=== PATIENT | male | born 1955 | race Caucasian/White ===

== ENCOUNTER 2017-04-19 06:54 | Observation (INO) | payer OTHER ==
[~2017-04-19] VITALS: Ht 172.7 cm; Wt 97.5 kg
[2017-04-19] VITALS (7 sets, daily range): BP systolic 141–188; BP diastolic 79–94; PULSE 55–84; RESP 14–16; TEMP 97–97.6; O2SAT 98–100
[~2017-04-19 06:54] MED LIST: ASPI1TAB69 PO; ATEN50TA PO; MOBI7.5T PO
[2017-04-19 07:12] LABS: AUTOMATED NEUTROPHIL # 4.2 TH/MM3 (1.8-7.7); BASOPHIL # 0.1 TH/MM3 (0-0.2); BASOPHIL % 0.9 % (0.0-2.0); EOSINOPHIL # 0.2 TH/MM3 (0-0.4); EOSINOPHIL % 3.1 % (0.0-4.0); HEMATOCRIT 43.5 % (39.0-51.0); HEMOGLOBIN 14.5 GM/DL (13.0-17.0); LYMPH % 28.5 % (9.0-44.0); MEAN CELL VOLUME 85.8 FL (80.0-100.0); MEAN CORPUSCULAR HEMOGLOBIN 28.6 PG (27.0-34.0); MEAN CORPUSCULAR HGB CONC 33.3 % (32.0-36.0); MEAN PLATELET VOLUME 7.8 FL (7.0-11.0); MONOCYTE # 0.5 TH/MM3 (0-0.9); NEUT % 60.5 % (16.0-70.0); PLATELET COUNT 231 TH/MM3 (150-450); RED BLOOD COUNT 5.07 MIL/MM3 (4.50-5.90); RED CELL DISTRIBUTION WIDTH 13.7 % (11.6-17.2)
--- NOTE | 2017-04-19 07:15 | RADRPT ---
EXAM DATE/TIME: 04/19/2017 07:03 [facility] COMPARISON: CHEST SINGLE AP, July 12, 2015, 11:34. INDICATIONS : Sudden onset of chest pain MEDICAL HISTORY : a fib SURGICAL HISTORY : None. ENCOUNTER: Initial ACUITY: 1 day PAIN SCORE: 5/10 LOCATION: Bilateral chest FINDINGS: A single view of the chest demonstrates the lungs to be symmetrically aerated without evidence of mas s, infiltrate or effusion. The cardiomediastinal contours are unremarkable. Osseous structures are intact. CONCLUSION: No acute disease. Mirza Cruz MD on April 19, 2017 at 7:13 Board Certified Radiologist. This report was verified electronically.
[2017-04-19 07:22] LABS: CHLORIDE 106 MEQ/L (98-107); SODIUM (NA) 139 MEQ/L (136-145)
[2017-04-19 07:24] LABS: CALCIUM 8.8 MG/DL (8.5-10.1)
[2017-04-19 07:25] LABS: BICARBONATE 26.4 MEQ/L (21.0-32.0); BLOOD UREA NITROGEN 27 MG/DL (7-18); GLUCOSE,RANDOM 114 MG/DL (74-106)
[2017-04-19 07:28] LABS: GLOMERULAR FILTRATION RATE 61 ML/MIN (>89)
[2017-04-19] MEDS: NITROGLYCERIN 0.4 MG SL 25 TABS/BTL SL SCH ×2 (07:31→07:38)
[2017-04-19 07:33] LABS: TROPONIN I LESS THAN 0.02 NG/ML (0.02-0.05)
--- NOTE | 2017-04-19 07:54 | PD ---
HPI Chief Complaint: Chest Pain Time Seen by Provider: 07:22 Travel History International Travel<30 days: No Contact w/Intl Traveler<30days: No Traveled to known affect area: No History of Present Illness HPI 61-year-old male complains of chest pain for the past 3 hours and a half. It started while he was asleep. Location is in the region of the left chest lateral to the inferior sternum. He denies shortness of breath. There is no pleuritic component. There is numbness and tingling and pain in the left upper extremity to the region of the elbow. He's had no cough or fever. He takes a baby aspirin daily. He denies history of diabetes hypertension and hyperlipidemia. He reports this morning his blood pressure was high at 190 systolic. PFSH Past Medical History Hx Anticoagulant Therapy: Yes (ASA) Atrial Fibrillation: Yes Blood Disorders: No Anxiety: No Depression: No Heart Rhythm Problems: Yes (atrial fibrillation) Cancer: No Cardiac Catheterization: Yes Cardiovascular Problems: Yes Chemotherapy: No Diabetes: No Diminished Hearing: No Endocrine: No Gastrointestinal Disorders: No GERD: Yes Glaucoma: No Genitourinary: No Hepatitis: No Hiatal Hernia: Yes Hypertension: No Immune Disorder: No Medical other: Yes (GERD) Musculoskeletal: No Neurologic: No Psychiatric: No Reproductive: No Respiratory: No Immunizations Current: Yes Radiation Therapy: No Thyroid Disease: No Tetanus Vaccination: > 5 Years Influenza Vaccination: No Past Surgical History AICD: No Arteriovenous Shunt: No Insulin Pump: No Joint Replacement: No Oral Surgery: Yes (SINUS SX) Pacemaker: No Other Surgery: Yes Social History Alcohol Use: Yes (OCCASIONAL) Tobacco Use: No Substance Use: No Allergies-Medications (Allergen,Severity, Reaction): Coded Allergies: No Known Allergies (Verified Allergy, Unknown, 04/19/17) Reported Meds & Prescriptions Reported Meds & Active Scripts Active Reported Omeprazole 10 Mg Cap Unknown Dose PO EVERY OTHER DAY Aspirin 81 Mg Chew 81 Mg PO DAILY Atenolol 50 Mg Tab 50 Mg PO DAILY Review of Systems Except as stated in HPI: all other systems reviewed are Neg General / Constitutional: No: Fever Physical Exam Narrative GENERAL: 61-year-old male pleasant well-nourished well-developed resting comfortably in bed Vital Signs Date Time Temp Pulse Resp B/P (MAP) Pulse Ox O2 Delivery O2 Flow Rate FiO2 04/19/17 07:08 99 Nasal Cannula 2.00 04/19/17 07:08 Nasal Cannula 2.00 04/19/17 07:00 97.5 64 16 158/94 (115) 98 SKIN: Warm and dry. HEAD: Atraumatic. Normocephalic. EYES: Pupils equal and round. No scleral icterus. No injection or drainage. ENT: No nasal bleeding or discharge. Mucous membranes pink and moist. NECK: Trachea midline. No JVD. CARDIOVASCULAR: Regular rate and rhythm. there is no chest wall tenderness to palpation. RESPIRATORY: No accessory muscle use. Clear to auscultation. Breath sounds equal bilaterally. GASTROINTESTINAL: Abdomen soft, non-tender, nondistended. Hepatic and splenic margins not palpable. MUSCULOSKELETAL: Extremities without clubbing, cyanosis, or edema. No obvious deformities. NEUROLOGICAL: Awake and alert. No obvious cranial nerve deficits. Motor grossly within normal limits. Five out of 5 muscle strength in the arms and legs. Normal speech. PSYCHIATRIC: Appropriate mood and affect; insight and judgment normal. Data Data Last Documented VS Vital Signs Date Time Temp Pulse Resp B/P (MAP) Pulse Ox O2 Delivery O2 Flow Rate FiO2 04/19/17 07:45 62 16 141/82 (101) 99 Nasal Cannula 2.00 04/19/17 07:00 97.5 Orders Orders Electrocardiogram (04/19/17 07:00) Complete Blood Count With Diff (04/19/17 07:00) Basic Metabolic Panel (Bmp) (04/19/17 07:00) Ckmb (Isoenzyme) Profile (04/19/17 07:00) Troponin I (04/19/17 07:00) Chest, Single Ap (04/19/17 07:00) Iv Access Insert/Monitor (04/19/17 07:00) Ecg Monitoring (04/19/17 07:00) Oxygen Administration (04/19/17 07:00) Oximetry (04/19/17 07:00) Nitroglycerin Sl (Nitrostat Sl) (04/19/17 07:30) Sodium Chlor 0.9% 1000 Ml Inj (Ns 1000 M (04/19/17 08:15) Admit Order (Ed Use Only) (04/19/17 ) Ticket Dispatcher / Telemetry DANIA.Q8H (04/19/17 08:19) Vital Signs (Adult) Q4H (04/19/17 08:19) Activity Bed Rest (04/19/17 08:19) Labs Laboratory Tests Test 04/19/17 07:00 White Blood Count 7.0 TH/MM3 Red Blood Count 5.07 MIL/MM3 Hemoglobin 14.5 GM/DL Hematocrit 43.5 % Mean Corpuscular Volume 85.8 FL Mean Corpuscular Hemoglobin 28.6 PG Mean Corpuscular Hemoglobin Concent 33.3 % Red Cell Distribution Width 13.7 % Platelet Count 231 TH/MM3 Mean Platelet Volume 7.8 FL Neutrophils (%) (Auto) 60.5 % Lymphocytes (%) (Auto) 28.5 % Monocytes (%) (Auto) 7.0 % Eosinophils (%) (Auto) 3.1 % Basophils (%) (Auto) 0.9 % Neutrophils # (Auto) 4.2 TH/MM3 Lymphocytes # (Auto) 2.0 TH/MM3 Monocytes # (Auto) 0.5 TH/MM3 Eosinophils # (Auto) 0.2 TH/MM3 Basophils # (Auto) 0.1 TH/MM3 CBC Comment DIFF FINAL Differential Comment Blood Urea Nitrogen 27 MG/DL Creatinine 1.20 MG/DL Random Glucose 114 MG/DL Calcium Level 8.8 MG/DL Sodium Level 139 MEQ/L Potassium Level 4.0 MEQ/L Chloride Level 106 MEQ/L Carbon Dioxide Level 26.4 MEQ/L Anion Gap 7 MEQ/L Estimat Glomerular Filtration Rate 61 ML/MIN Total Creatine Kinase 91 U/L Troponin I LESS THAN 0.02 NG/ML MDM Medical Decision Making Medical Screen Exam Complete: Yes Emergency Medical Condition: Yes Medical Record Reviewed: Yes Differential Diagnosis NSTEMI, unstable angina, coronary vasospasm, PE, PTX, aortic dissection, pericarditis, myocarditis, endocarditis, PNA, esophageal disease, aneurysm, musculoskeletal etiologies, anxiety, cocaine/sympathomimetic abuse Narrative Course EKG shows a sinus rhythm normal axis intervals rate is 65 Last Impressions Chest X-Ray 04/19/17 0700 Signed Impressions: Service Date/Time: Wednesday, April 19, 2017 07:03 - CONCLUSION: No acute disease. Mirza Cruz MD CBC & BMP Diagram 04/19/17 07:00 Calcium Level 8.8 Troponin less than 0.02 the nuclear medicine perfusion scan from approximately 1 year 10 months prior is normal Patient received nitroglycerin 2 with resolution of pain. Chest pain center protocol considered next most appropriate step. d/w Dr Oglesby Diagnosis Primary Impression: Chest pain Qualified Codes: R07.9 - Chest pain, unspecified Additional Impressions: Hypertension Qualified Codes: I10 - Essential (primary) hypertension Prerenal azotemia Admitting Information Admitting Physician Requests: Observation London Willis MD Apr 19, 2017 07:54
[2017-04-19] MEDS ORDERED: SODIUM CHLOR 0.9% 1000 ML INJ 1,000 ML IV ONE (08:15)
--- NOTE | 2017-04-19 08:22 | HHI.HP ---
[facility] Primary Care Physician Unknown Admission Diagnosis Chest Pain; Hypertension; Dehydration Diagnoses: (1) Chest pain (2) Hypertension Chief Complaint: Chest pain Travel History International Travel<30 Days: No Contact w/Intl Traveler <30 Da: No Traveled to Known Affected Are: No History of Present Illness This is a pleasant 61-year-old male patient with a known medical history of atrial fibrillation on aspirin who presented to the ED with complaints of chest pain. Patient states that around 04 100 this morning he was awoken out of sleep due to the midsternal chest discomfort, states it was constant and dull and squeezing in nature, also noticing a left arm ache, rated a 7 out of 10 on pain scale at its worst, denies any associated nausea, vomiting, diaphoresis or shortness of breath. Patient states that he has never felt this type of pain before. He did check his blood pressure at home and it was reported to be 190/ 100. Patient states he took his scheduled daily medications including aspirin and atenolol with no relief of pain. Patient eventually went to the ED and received nitroglycerin which somewhat relieved the pain. He denies any recent illness including fever, chills, cough, headache, shortness of breath, abdominal pain, nausea, vomiting or diarrhea. PCP is Dr. Bonilla. Patient underwent a stress test 3 years ago which was reportedly negative. Patient follows with Dr. Ingram in the outpatient setting and was last seen 1 year ago. Denies any tobacco use. Family history negative. Review of Systems Constitutional: DENIES: Fatigue, Fever, Chills Eyes: DENIES: Blurred vision, Diplopia Respiratory: DENIES: Cough, Sputum production, Shortness of breath Cardiovascular: COMPLAINS OF: Chest pain, DENIES: Palpitations Gastrointestinal: DENIES: Abdominal pain, Black stools, Bloody stools, Constipation, Diarrhea, Nausea, Vomiting Musculoskeletal: DENIES: Joint pain Neurologic: DENIES: Abnormal gait Psychiatric: DENIES: Anxiety Except as stated in HPI: all other systems reviewed are Neg Past Family Social History Past Medical History Atrial fibrillation on aspirin GERD Hiatal hernia Past Surgical History Sinus surgery 2 Reported Medications Active Reported Omeprazole 10 Mg Cap Unknown Dose PO EVERY OTHER DAY Aspirin 81 Mg Chew 81 Mg PO DAILY Atenolol 50 Mg Tab 50 Mg PO DAILY Allergies: Coded Allergies: No Known Allergies (Verified Allergy, Unknown, 04/19/17) Active Ordered Medications Current Medications Medications (Trade) Dose Ordered Sig/Sheela Route Start Time Stop Time Status Last Admin (NS Flush) 2 ml UNSCH PRN IV FLUSH 04/19/17 08:30 (NS Flush) 2 ml BID IV FLUSH 04/19/17 09:00 (Tylenol) 500 mg Q4H PRN PO 04/19/17 08:30 (Zofran Inj) 4 mg Q6H PRN IV PUSH 04/19/17 08:30 Family History Denies any significant cardiovascular disease in family. Social History Patient denies any current tobacco use, states he quit 30 years ago, admits to occasional alcohol use. Denies any illicit drug use. Physical Exam Vital Signs Vital Signs Date Time Temp Pulse Resp B/P (MAP) Pulse Ox O2 Delivery O2 Flow Rate FiO2 04/19/17 07:45 62 16 141/82 (101) 99 Nasal Cannula 2.00 04/19/17 07:37 68 16 145/79 (101) 98 Nasal Cannula 2.00 04/19/17 07:08 99 Nasal Cannula 2.00 04/19/17 07:08 Nasal Cannula 2.00 04/19/17 07:00 97.5 64 16 158/94 (115) 98 Physical Exam GENERAL: Well-developed, well-nourished patient in [facility]. SKIN: Warm and dry. No rash. HEAD: Normocephalic. Atraumatic. EYES: Pupils equal and round. No scleral icterus. No injection or drainage. ENT: No nasal bleeding or discharge. Mucous membranes pink and moist. NECK: Supple. Trachea midline. CARDIOVASCULAR: Regular rate and rhythm. S1, S2 noted. No murmur appreciated. No chest pain to palpation. RESPIRATORY: No accessory muscle use. Clear to auscultation. Breath sounds equal bilaterally. GASTROINTESTINAL: Abdomen soft, non-tender, nondistended. Normoactive bowel sounds x4. MUSCULOSKELETAL: No obvious deformities. Extremities without clubbing, cyanosis , or edema. NEUROLOGICAL: Awake and alert. No obvious cranial nerve deficits. Motor grossly within normal limits. 5/5 muscle strength in bilateral upper and lower extremities. Normal speech. PSYCHIATRIC: Appropriate mood and affect; insight and judgment normal. Laboratory Laboratory Tests Test 04/19/17 07:00 White Blood Count 7.0 Red Blood Count 5.07 Hemoglobin 14.5 Hematocrit 43.5 Mean Corpuscular Volume 85.8 Mean Corpuscular Hemoglobin 28.6 Mean Corpuscular Hemoglobin Concent 33.3 Red Cell Distribution Width 13.7 Platelet Count 231 Mean Platelet Volume 7.8 Neutrophils (%) (Auto) 60.5 Lymphocytes (%) (Auto) 28.5 Monocytes (%) (Auto) 7.0 Eosinophils (%) (Auto) 3.1 Basophils (%) (Auto) 0.9 Neutrophils # (Auto) 4.2 Lymphocytes # (Auto) 2.0 Monocytes # (Auto) 0.5 Eosinophils # (Auto) 0.2 Basophils # (Auto) 0.1 CBC Comment DIFF FINAL Differential Comment Blood Urea Nitrogen 27 Creatinine 1.20 Random Glucose 114 Calcium Level 8.8 Sodium Level 139 Potassium Level 4.0 Chloride Level 106 Carbon Dioxide Level 26.4 Anion Gap 7 Estimat Glomerular Filtration Rate 61 Total Creatine Kinase 91 Troponin I LESS THAN 0.02 Result Diagram: 04/19/1769904/19/17699 Imaging Last Impressions Chest X-Ray 04/19/17699 Signed Impressions: Service Date/Time: Wednesday, April 19, 2017 07:03 - CONCLUSION: No acute disease. Mirza Cruz MD Septic Shock Reassessment Septic shock perfusion: reassessment completed Caprini VTE Risk Assessment Caprini VTE Risk Assessment: Mod/High Risk (score >= 2) Caprini Risk Assessment Model Point Value = 1 Point Value = 2 Point Value = 3 Point Value = 5 Age 41-60 Minor surgery BMI > 25 kg/m2 Swollen legs Varicose veins or History of unexplained or recurrent spontaneous Oral contraceptives or hormone replacement Sepsis (< 1 month) Serious lung disease, including pneumonia (< 1 month) Abnormal pulmonary function Acute myocardial infarction Congestive heart failure (< 1 month) History of inflammatory bowel disease Medical patient at bed rest Age 61-74 Arthroscopic surgery Major open surgery (> 45 min) Laparoscopic surgery (> 45 min) Malignancy Confined to bed (> 72 hours) Immobilizing plaster cast Central venous access Age >= 75 History of VTE Family history of VTE Factor V Leiden Prothrombin [id number] Lupus anticoagulant Anticardiolipin antibodies Elevated serum homocysteine Heparin-induced thrombocytopenia Other congenital or acquired thrombophilia Stroke (< 1 month) Elective arthroplasty Hip, pelvis, or leg fracture Acute spinal cord injury (< 1 month) Prophylaxis Regimen Total Risk Factor Score Risk Level Prophylaxis Regimen 0-1 Low Early ambulation 2 Moderate Order ONE of the following: *Sequential Compression Device (SCD) *Heparin 5000 units SQ BID 3-4 Higher Order ONE of the following medications: *Heparin 5000 units SQ TID *Enoxaparin/Lovenox 40 mg SQ daily (WT < 150 kg, CrCl > 30 mL/min) *Enoxaparin/Lovenox 30 mg SQ daily (WT < 150 kg, CrCl > 10-29 mL/min) *Enoxaparin/Lovenox 30 mg SQ BID (WT < 150 kg, CrCl > 30 mL/min) AND/OR *Sequential Compression Device (SCD) 5 or more Highest Order ONE of the following medications: *Heparin 5000 units SQ TID (Preferred with Epidurals) *Enoxaparin/Lovenox 40 mg SQ daily (WT < 150 kg, CrCl > 30 mL/min) *Enoxaparin/Lovenox 30 mg SQ daily (WT < 150 kg, CrCl > 10-29 mL/min) *Enoxaparin/Lovenox 30 mg SQ BID (WT < 150 kg, CrCl > 30 mL/min) AND *Sequential Compression Device (SCD) Assessment and Plan Problem List: (1) Chest pain ICD Code: R07.9 - Chest pain, unspecified Status: Acute Plan: Patient has been admitted to the hospital under observation in the chest pain center. Serial EKGs and serial troponins have been ordered for ruling out ACS purposes. Initial 2 troponins flat, follow trend. EKG reviewed showing normal sinus rhythm with controlled heart rate. Patient is on cardiac telemetry, occasional sinus bradycardia. Chest pain has subsided, currently complains of a 2 out of 10 on pain scale. Chest x-ray reviewed showing no acute disease. CBC and BMP reviewed, essentially unremarkable. Patient received nitroglycerin in ED with some relief of pain. Patient will undergo a cardiac talar stress test to further rule out any ischemia. Depending on nuclear imaging results, further hospitalization and treatment plan will be developed. Patient is stable at this time and agreeable to the plan. (2) Hypertension ICD Code: I10 - Essential (primary) hypertension Status: Acute Plan: Blood pressure is controlled, continue to monitor BP trends. Will continue home medications although patient took her medications this morning. Assessment and Plan Patient underwent nuclear stress test, report reviewed, EF 66%. No ischemia or reversible defects noted. Patient updated about results. We will discharge and have follow up with PCP. Patient follows with Dr. Ingram cardiology, encourage patient to follow-up as scheduled. Patient's chest pain is resolved. Stable. And agreeable to the plan. Problem Qualifiers (1) Chest pain: Qualified Codes: R07.9 - Chest pain, unspecified (2) Hypertension: Qualified Codes: I10 - Essential (primary) hypertension Sabrina Cortés Apr 19, 2017 08:22
[2017-04-19] MEDS ORDERED: ONDANSETRON HCL 4 MG/2 ML VIAL IV PUSH PRN (08:30)
[2017-04-19] MEDS ORDERED: SODIUM CHLORIDE 0.9% FLUSH 10 ML FLUSH IV FLUSH PRN (08:30)
[2017-04-19] MEDS ORDERED: ACETAMINOPHEN 500 MG CPLT PO PRN (08:30)
[2017-04-19] MEDS ORDERED: OMEP10CA PO (08:48)
[2017-04-19] MEDS ORDERED: ASPI-516 PO (08:48)
[2017-04-19] MEDS ORDERED: SODIUM CHLORIDE 0.9% FLUSH 10 ML FLUSH IV FLUSH SCH (09:00)
[2017-04-19 10:25] LABS: TROPONIN I 0.03 NG/ML (0.02-0.05)
[2017-04-19] MEDS ORDERED: REGADENOSON INJ 0.4 MG/5 ML SYR IV ONE (12:52)
--- NOTE | 2017-04-19 13:57 | RADRPT ---
EXAM DATE/TIME: 04/19/2017 12:38 [facility] COMPARISON: MYOCARDIAL PERF PHARM SPECT, GATED W/EF, July 13, 2015, 10:38. INDICATIONS : Substernal chest pain. Angina. Atrial fibrillation. DOSE: 25.4 mCi Tc99m Myoview at stress. 8.5 mCi Tc99m Myoview at rest. 0.4 mg Lexiscan STRESS SYMPTOMS: Headache, dyspnea, nausea and chest pressure. EJECTION FRACTION: 66% MEDICAL HISTORY : Gastroesophageal reflux disease. SURGICAL HISTORY : Sinus surgery. ENCOUNTER: Initial ACUITY: 1 day PAIN SCALE: 5/10 LOCATION: Substernal chest TECHNIQUE: The patient underwent pharmacologic stress with infusion of prescribed dose. Continuous ECG tracing was monitored during stress. Gated SPECT imaging was performed after stress and conventional SPECT i maging was performed at rest. The examination was performed on a SPECT/CT scanner, both attenuation and non-corrected datasets were reviewed. FINDINGS: DISTRIBUTION: The maximum perfused segment at stress is in the anterior wall. PERFUSION STUDY: The pattern of perfusion at stress is within normal limits. GATED STUDY: There is intact wall motion and thickening without hypokinetic or dyskinetic segments. CONCLUSION: No focal wall motion abnormality or reversible perfusion defect. RISK CATEGORY: 1- Low Risk. Mohinder Christine MD on April 19, 2017 at 13:54 Board Certified Radiologist. This report was verified electronically.
--- NOTE | 2017-04-19 14:46 | HHI.DCPOC ---
Discharge Care Plan Diagnosis: (1) Hypertension (2) Chest pain Goals to Promote Your Health * To prevent worsening of your condition and complications * To maintain your health at the optimal level Directions to Meet Your Goals Take your medications as prescribed Follow your dietary instruction Follow activity as directed Keep your appointments as scheduled Take your immunizations and boosters as scheduled If your symptoms worsen call your PCP, if no PCP go to Urgent Care Center or Emergency Room Smoking is Dangerous to Your Health. Avoid second hand smoke Call the 24-hour hour crisis hotline for domestic abuse at Sabrina Cortés Apr 19, 2017 14:46
--- NOTE | 2017-04-19 14:53 | EKG ---
Date Performed: 04/19/2017 Time Performed: 09:40:03 PTAGE: 61 years EKG: SINUS BRADYCARDIA BORDERLINE ECG No significant change from prior electrocardiogram. PREVIOUS TRACING : 07/12/2015 17.39 DOCTOR: Moises Ingram Interpretating Date/Time 04/19/2017 14:52:57
[2017-04-19] MEDS ORDERED: LISI10TA3 PO (14:54)
[2017-04-19] MEDS ORDERED: LISINOPRIL 5 MG TAB PO SCH (15:00)
[2017-04-19] MEDS ORDERED: NAPROXEN 500 MG TAB PO ONE (15:00)
--- NOTE | 2017-04-19 16:14 | EKG ---
Date Performed: 04/19/2017 Time Performed: 14:46:02 PTAGE: 61 years EKG: Sinus rhythm NORMAL ECG Compared to prior electrocardiogram, Lateral ST elevation has resolved. PREVIOUS TRACING : 04/19/2017 09.40 DOCTOR: Moises Ingram Interpretating Date/Time 04/19/2017 16:13:59
--- NOTE | 2017-04-19 16:15 | EKG ---
Date Performed: 04/19/2017 Time Performed: 06:58:23 PTAGE: 61 years EKG: Sinus rhythm NORMAL ECG No significant change from prior electrocardiogram. DOCTOR: Moises Ingram Interpretating Date/Time 04/19/2017 16:14:23
--- NOTE | 2017-04-20 12:49 | TR ---
Date Performed: 04/19/2017 Time Performed: 13:09:29 DOCTOR: Billy Fernández DRUG LIST: CLINICAL HISTORY: CHEST PAIN CHEST PAIN REASON FOR TEST: Chest pain REASON FOR ENDING: OBSERVATION: CONCLUSION: Lexiscan stress test was performed under standard four minute protocol. Radionuclide was injected one minute prior to ending the test. No electrocardiographic abormalities were present to suggest ischemia. Nuclear imaging and interpretation are pending. COMMENTS:
== END 2017-04-19 18:03 | disposition home or self-care (01) ==
LOC: PHED 06:54 → PHEDA 08:21 → PH3A 09:54
PROVIDERS: ADMIT Hospitalist; ATTEND Hospitalist
DX: R07.89 Other chest pain (principal); E86.0 Dehydration; R51 Headache; R20.0 Anesthesia of skin; R20.2 Paresthesia of skin; R79.89 Other specified abnormal findings of blood chemistry; I20.9 Angina pectoris, unspecified; I10 Essential (primary) hypertension; R00.1 Bradycardia, unspecified; I48.91 Unspecified atrial fibrillation; K21.9 Gastro-esophageal reflux disease without esophagitis; Z79.82 Long term (current) use of aspirin; Z79.899 Other long term (current) drug therapy; Z87.891 Personal history of nicotine dependence
CPT/HCPCS: 71045; 78452; 80048; 82550; 84484; 85025; 93005; 93017; 96360; 99285; A9502; G0378; J2785; J7030